=== PATIENT | male | born 2000 | race Caucasian/White ===

== ENCOUNTER 2024-02-18 20:59 | Emergency (ER) | payer SELFPAY ==
[~2024-02-18] VITALS: Ht 165.1 cm; Wt 63.5 kg
[2024-02-18] MEDS ORDERED: TDAP [DIPH/PERTUSSIS/TET] 0.5 ML VIAL IM ONE (22:08)
[2024-02-18] MEDS: TDAP [DIPH/PERTUSSIS/TET] 0.5 ML VIAL IM ONE (22:14)
[2024-02-18 22:29] VITALS: BP 127/85; TEMP 98.3; O2SAT 100
== END 2024-02-18 22:30 | disposition home or self-care (01) ==
LOC: ER 21:03
DX: S61.216A Laceration without foreign body of right little finger without damage to nail, initial encounter (principal); W26.9XXA Contact with unspecified sharp object(s), initial encounter; Y93.89 Activity, other specified; Y92.89 Other specified places as the place of occurrence of the external cause; Y99.8 Other external cause status
CPT/HCPCS: 90715